=== PATIENT | male | born 1990 | race Hispanic/Latino ===

== ENCOUNTER 2016-12-16 14:24 | Emergency (ER) | payer OTHER ==
[~2016-12-16] VITALS: Ht 180.3 cm; Wt 86.2 kg
[2016-12-16] MEDS ORDERED: AUGMENTIN 875-1 EACH PO (14:39)
== END 2016-12-16 14:56 | disposition home or self-care (01) ==
LOC: ED 14:24
DX: S31.813A Puncture wound without foreign body of right buttock, initial encounter (principal); Z87.891 Personal history of nicotine dependence; W54.0XXA Bitten by dog, initial encounter
CPT/HCPCS: 90471; 90714; 99283